=== PATIENT | female | born 1960 | race Caucasian/White ===

== ENCOUNTER 2019-11-12 08:12 | Outpatient (REF) | payer OTHER, SELFPAY ==
[2019-11-12 09:03] LABS: MANUAL DIFF FLAG NO
[2019-11-12 09:07] LABS: Basophils Percent Auto 0.5 % (0-2); Eosinophils Absolute Auto 0.1 X10*3/uL (0.0-0.4); Eosinophils Percent Auto 1.4 % (0-4); Hematocrit 40.5 % (37-47); Hemoglobin 13.6 g/dl (12.0-16.0); Imm Gran Abs Auto 0.01 X10*3/uL (0.00-0.03); Imm Gran Pct Auto 0.2 % (0.0-0.4); Lymphocytes Absolute Auto 1.7 X10*3/uL (1.2-4.9); Lymphocytes Percent Auto 29.5 % (20-40); Mean Corpuscular HGB Conc 33.6 g/dl (31.0-35.0); Mean Corpuscular Hemoglobin 30.6 pg (27.0-33.0); Mean Platelet Volume 11.3 fL (9.4-12.3); Monocytes Absolute Auto 0.4 X10*3/uL (0.1-1.2); Monocytes Percent Auto 7.2 % (2-11); Neutrophils Absolute Auto 3.4 X10*3/uL (2.0-8.3); Neutrophils Percent Auto 61.2 % (45-73); Platelet Count 215 X10*3/uL (160-400); Red Blood Count 4.45 X10*6/uL (4.20-5.50); Red Cell Distribution Width 12.4 % (11.0-16.0); White Blood Count 5.6 X10*3/uL (4.8-10.8)
[2019-11-12 09:33] LABS: Alanine Aminotransferase 31 U/L (0-31); Albumin Level 4.5 g/dL (3.5-5.0); Alkaline Phosphatase 101 U/L (39-117); Aspartate Amino Transferase 29 U/L (5-31); Bilirubin Direct 0.2 mg/dL (0.0-0.5); Bilirubin Total 0.6 mg/dL (0.0-1.0)
[2019-11-12 09:35] LABS: Alanine Aminotransferase 31 U/L (0-31); Albumin Level 4.5 g/dL (3.5-5.0); Alkaline Phosphatase 101 U/L (39-117); Anion Gap 10 (12-20); Aspartate Amino Transferase 29 U/L (5-31); Bilirubin Total 0.5 mg/dL (0.0-1.0); Blood Urea Nitrogen 9 mg/dL (9-16); Calcium 9.7 mg/dL (8.4-10.2); Carbon Dioxide 29 mmol/L (22-29); Chloride 102 mmol/L (96-108); Cholesterol 224 mg/dL; Estimated Glomerular Filt Rate > 60; Glucose Fasting 100 mg/dL (60-99); HDL Cholesterol 61 mg/dL; LDL Cholesterol Calculated 141 mg/dl; Potassium 4.3 mmol/l (3.3-5.1); Sodium 137 mmol/L (135-145); Total Protein 7.2 g/dL (6.5-8.0); Triglycerides 111 mg/dL
[2019-11-12 09:48] LABS: Thyroid Stimulating Hormone 1.28 mIU/mL (0.32-4.0)
[2019-11-12 09:53] LABS: HBS Num1 188.31 mIU/mL (0-7.99); ~Hepatitis B Surface Antibody REACTIVE (Nonreactive); ~Hepatitis C Antibody Nonreactive (Nonreactive)
[2019-11-12 10:15] LABS: HBc Num1 0.07 S/CO (0.00-0.79); HBsAGNum1 0.59 S/CO (0.00-0.99); Hepatitis B Core Antibody Nonreactive (Nonreactive); Hepatitis B Surface Antigen Negative (Negative)
[2019-11-14 18:25] LABS: Alpha 1 Anti-trypsin 143 mg/dL (83-199)
== END 2019-11-12 08:13 | disposition home or self-care (01) ==
LOC: HO.LAB 08:12
PROVIDERS: PCP Internal Medicine; Visit Provider Internal Medicine
DX: R74.8 Abnormal levels of other serum enzymes (principal); R53.83 Other fatigue
CPT/HCPCS: 36415; 80053; 80061; 80076; 82103; 84443; 85025; 86704; 86706; 86803; 87340

== ENCOUNTER 2020-05-01 13:33 | Outpatient (REF) | payer OTHER, SELFPAY ==
[2020-05-01 14:50] LABS: Alanine Aminotransferase 19 U/L (0-31); Albumin Level 4.5 g/dL (3.5-5.0); Alkaline Phosphatase 108 U/L (39-117); Aspartate Amino Transferase 22 U/L (5-31); Bilirubin Direct < 0.2 mg/dL (0.0-0.5); Bilirubin Total 0.3 mg/dL (0.0-1.0); Total Protein 7.4 g/dL (6.5-8.0)
[2020-05-04 17:46] LABS: Ceruloplasmin 18 mg/dL (18-53)
== END 2020-05-01 13:34 | disposition home or self-care (01) ==
LOC: HO.LAB 13:33
PROVIDERS: Visit Provider Internal Medicine
DX: R74.8 Abnormal levels of other serum enzymes (principal)
CPT/HCPCS: 36415; 80076; 82390

== ENCOUNTER 2020-05-08 16:21 | Outpatient (REF) | payer OTHER, SELFPAY ==
--- NOTE | ~2020-05-08 | MM_ITS ---
EXAMINATION: MM SCREENING DIGITAL BREAST TOMOSYNTHESIS, BILATERAL CLINICAL INFORMATION: Screening. Asymptomatic. The lifetime risk of breast cancer based on the Tyrer-Cuzick Model is 9%. COMPARISON: Mammography: 12/19/2018, 04/26/2017, 02/20/2013 TECHNIQUE: Digital breast tomosynthesis is performed in both the craniocaudal and mediolateral oblique views along with computer-aided detection (CAD). Synthesized 2D images are generated from the tomosynthesis. FINDINGS: There are scattered areas of fibroglandular density (ACR BI-RADS breast composition Category b). There are no significant masses, abnormal calcifications, or other abnormalities. Parenchymal pattern is similar to prior studies. Mild bilateral nipple retraction is chronic. The axilla are unremarkable. MM/MM tomosynthesis screening BI IMPRESSION: No significant changes from prior exams. ASSESSMENT: BI-RADS 2: Benign RECOMMENDATION: Routine annual mammography screening. This patient's information was entered into a reminder system with a target due date for their next mammogram.
== END 2020-05-08 16:22 | disposition home or self-care (01) ==
LOC: HO.MAMMO 16:21
PROVIDERS: PCP Internal Medicine; Visit Provider Internal Medicine
DX: Z12.31 Encounter for screening mammogram for malignant neoplasm of breast (principal)
CPT/HCPCS: 77063; 77067

== ENCOUNTER 2020-09-18 13:42 | Outpatient (REF) | payer OTHER, SELFPAY ==
--- NOTE | ~2020-09-18 | XR_ITS ---
EXAMINATION: XR SACRUM AND COCCYX CLINICAL INFORMATION: Coccygeal pain. COMPARISON: None TECHNIQUE: AP and lateral views of the sacrum and coccyx. FINDINGS: No acute fracture or subluxation. Mild loss of intervertebral disc height with small endplate osteophytes at L4-L5 and L5-S1. No sacroiliac joint space narrowing or marginal osteophytes. No osseous erosion. No lytic or blastic osseous lesion. XR/XR sacrum coccyx min 2V IMPRESSION: Mild degenerative disc disease at L4-L5 and L5-S1.
== END 2020-09-18 13:43 | disposition home or self-care (01) ==
LOC: HO.XRAY 13:42
PROVIDERS: PCP Internal Medicine; Visit Provider Internal Medicine
DX: M53.3 Sacrococcygeal disorders, not elsewhere classified (principal)
CPT/HCPCS: 72220

== ENCOUNTER 2020-11-20 08:51 | Outpatient (REF) | payer OTHER, SELFPAY ==
[2020-11-20 09:15] LABS: MANUAL DIFF FLAG NO
[2020-11-20 09:45] LABS: Basophils Percent Auto 0.4 % (0-2); Eosinophils Absolute Auto 0.1 X10*3/uL (0.0-0.4); Hematocrit 40.8 % (37-47); Hemoglobin 13.7 g/dl (12.0-16.0); Imm Gran Abs Auto 0.01 X10*3/uL (0.00-0.03); Imm Gran Pct Auto 0.2 % (0.0-0.4); Lymphocytes Absolute Auto 1.5 X10*3/uL (1.2-4.9); Lymphocytes Percent Auto 30.1 % (20-40); Mean Corpuscular HGB Conc 33.6 g/dl (31.0-35.0); Mean Corpuscular Hemoglobin 30.2 pg (27.0-33.0); Mean Corpuscular Volume 90.1 fL (80-98); Mean Platelet Volume 11.5 fL (9.4-12.3); Monocytes Absolute Auto 0.4 X10*3/uL (0.1-1.2); Monocytes Percent Auto 8.7 % (2-11); Neutrophils Percent Auto 58.6 % (45-73); Platelet Count 229 X10*3/uL (160-400); Red Blood Count 4.53 X10*6/uL (4.20-5.50); Red Cell Distribution Width 12.4 % (11.0-16.0); White Blood Count 5.1 X10*3/uL (4.8-10.8)
[2020-11-20 10:18] LABS: Alanine Aminotransferase 20 U/L (0-31); Albumin Level 4.5 g/dL (3.5-5.0); Alkaline Phosphatase 95 U/L (39-117); Anion Gap 11 (12-20); Aspartate Amino Transferase 26 U/L (5-31); Bilirubin Total 0.3 mg/dL (0.0-1.0); Blood Urea Nitrogen 6 mg/dL (9-16); Carbon Dioxide 30 mmol/L (22-29); Chloride 100 mmol/L (96-108); Cholesterol 219 mg/dL; Estimated Glomerular Filt Rate > 60; Glucose Random 98 mg/dL (60-115); HDL Cholesterol 64 mg/dL; LDL Cholesterol Calculated 136 mg/dl; Potassium 4.2 mmol/L (3.3-5.1); Sodium 137 mmol/L (135-145); Total Protein 7.2 g/dL (6.5-8.0); Triglycerides 99 mg/dL
[2020-11-20 10:40] LABS: TSH reflex Free T4 1.02 uIU/mL (0.32-4.0)
== END 2020-11-20 08:52 | disposition home or self-care (01) ==
LOC: HO.LAB 08:51
PROVIDERS: PCP Internal Medicine; Visit Provider Internal Medicine
DX: Z00.00 Encounter for general adult medical examination without abnormal findings (principal); R53.83 Other fatigue; E78.00 Pure hypercholesterolemia, unspecified
CPT/HCPCS: 36415; 80053; 80061; 84443; 85025

== ENCOUNTER 2021-05-14 08:51 | Outpatient (REF) | payer OTHER, SELFPAY ==
--- NOTE | ~2021-05-14 | MM_ITS ---
EXAMINATION: MM SCREENING DIGITAL BREAST TOMOSYNTHESIS, BILATERAL CLINICAL INFORMATION: Screening. Asymptomatic. The lifetime risk of breast cancer based on the Tyrer-Cuzick Model is 9%. COMPARISON: Mammography: 05/08/2020, 12/19/2018, 04/26/2017 TECHNIQUE: Digital breast tomosynthesis is performed in both the craniocaudal and mediolateral oblique views along with computer-aided detection (CAD). Synthesized 2D images are generated from the tomosynthesis. FINDINGS: There are scattered areas of fibroglandular density (ACR BI-RADS breast composition Category b). There are no significant masses, abnormal calcifications, or other abnormalities. The axilla are unremarkable. There is mild chronic bilateral nipple retraction similar to prior studies. No significant changes. MM/MM tomosynthesis screening BI IMPRESSION: No mammographic evidence of malignancy. ASSESSMENT: BI-RADS 2: Benign RECOMMENDATION: Routine annual mammography screening. This patient's information was entered into a reminder system with a target due date for their next mammogram.
== END 2021-05-14 08:52 | disposition home or self-care (01) ==
LOC: HO.MAMMO 08:51
PROVIDERS: PCP Family Medicine; Visit Provider Family Medicine
DX: Z12.31 Encounter for screening mammogram for malignant neoplasm of breast (principal)
CPT/HCPCS: 77063; 77067

== ENCOUNTER 2022-03-08 15:11 | Outpatient (REF) | payer OTHER, SELFPAY ==
--- NOTE | ~2022-03-08 | MR_ITS ---
MR THORACIC SPINE WITHOUT CONTRAST CLINICAL INFORMATION: Hyperreflexia. Rule out AVM. COMPARISON: None available. TECHNIQUE: The patient could not tolerate this study and a 3 plane localizer and single sagittal T1-weighted series of the thoracic spine are obtained. MR/MR thoracic spine wo con FINDINGS/IMPRESSION: The patient could not tolerate this examination. A single limited sagittal T1-weighted series of the thoracic spine is obtained. At T6-T7, a probable disc osteophyte complex flattens the ventral cord. Nondiagnostic assessment for a spinal AVM on this one obtained series. Multiple cysts within the liver. Repeat study with sedation advised as clinically indicated.
== END 2022-03-08 15:12 | disposition home or self-care (01) ==
LOC: HO.MRI 15:11
PROVIDERS: PCP Family Medicine; Visit Provider Psychiatry & Neurology Neurology
DX: R20.2 Paresthesia of skin (principal); R29.2 Abnormal reflex; Q27.30 Arteriovenous malformation, site unspecified
CPT/HCPCS: 72146

== ENCOUNTER 2022-08-12 09:06 | Outpatient (REF) | payer OTHER, SELFPAY ==
--- NOTE | ~2022-08-12 | MM_ITS ---
EXAMINATION: MM SCREENING DIGITAL BREAST TOMOSYNTHESIS, BILATERAL CLINICAL INFORMATION: Screening. Asymptomatic. The lifetime risk of breast cancer based on the Tyrer-Cuzick Model is 9.3%. COMPARISON: Mammography: This study is compared with prior exams dating back to 2018. TECHNIQUE: Digital breast tomosynthesis is performed in both the craniocaudal and mediolateral oblique views along with computer-aided detection (CAD). Synthesized 2D images are generated from the tomosynthesis. FINDINGS: There are scattered areas of fibroglandular density (ACR BI-RADS breast composition Category b). There are no significant masses, abnormal calcifications, or other abnormalities. MM/MM tomosynthesis screening BI IMPRESSION: No mammographic evidence of malignancy. ASSESSMENT: BI-RADS BI-RADS 1 - Negative RECOMMENDATION: Routine annual mammography screening. 1 year F/U This examination should not preclude the clinical evaluation of a suspicious palpable abnormality. This patient's information was entered into a reminder system with a target due date for their next mammogram.
== END 2022-08-12 09:07 | disposition home or self-care (01) ==
LOC: HO.MAMMO 09:06
PROVIDERS: PCP Family Medicine; Visit Provider Family Medicine
DX: Z12.31 Encounter for screening mammogram for malignant neoplasm of breast (principal)
CPT/HCPCS: 77063; 77067

== ENCOUNTER → 2022-08-12 09:15 | Outpatient (BNV) | payer OTHER, SELFPAY | PROVIDERS: PCP Family Medicine; Visit Provider Radiology Diagnostic Radiology | DX: Z12.31 Encounter for screening mammogram for malignant neoplasm of breast (principal) | CPT/HCPCS: 77063; 77067 ==

== ENCOUNTER 2023-06-14 07:24 | Day surgery (SDC) | payer OTHER, SELFPAY ==
[2023-06-13 06:42] VITALS: BMI 22.7
--- NOTE | 2023-06-13 09:06 | P.CONAN_ITS ---
Documented by User: Cindy Rojo NP 06/13/23 09:06 HPI - Anesthesia Eval Consult details Narrative: 62yo F for Upper Endoscopy and Colonoscopy PMFSH Active Problems Active Problems: All Active Problems Hepatic cyst (Acute) Elevated LFTs (Acute) Chronic idiopathic constipation (Acute) GERD (gastroesophageal reflux disease) (Acute) Past Medical History Medical History Hx of lipoma Low iron Elevated liver enzymes Depression Essential tremor Vasovagal syncope Constipation Migraines Family History Family History (Updated 03/12/20 @ 13:59 by Tessy Henson Martín) Father Pancreatic cancer Mother Colon cancer, Onset Age: 82 Brother Scoliosis Sister IBS (irritable bowel syndrome) Surgical History Surgical History History of removal of skin mole History of left oophorectomy History of esophagogastroduodenoscopy (EGD) Hx of colonoscopy Social History Social History Patient Tobacco Use Status: Never used Tobacco Use of substances other than those prescribed or required for medical reasons: Yes Substance Use Frequency: Occasionally Are you DNR?: No Advance Directives: No Advance Directives Information Provided: Yes Patient : No Meds Allergies Allergy/AdvReac Type Severity Reaction Status Date / Time azithromycin [AZITHROMYCIN] Allergy Severe ORAL Verified 06/14/23 07:55 BLISTERS ibuprofen Allergy Unknown Unknown Verified 03/12/20 14:00 Band-Aid Allergy Unknown Unknown Uncoded 03/12/20 14:00 Home Medications ?Medication ?Instructions ?Recorded ?Confirmed ?Last Taken ?Type escitalopram oxalate 10 mg tablet 10 mg PO DAILY 06/13/23 06/13/23 Unknown History multivitamin 1 tab PO DAILY 06/13/23 06/13/23 Unknown History omeprazole 20 mg capsule,delayed 20 mg PO BID 06/13/23 06/14/23 06/14/23 06:00 History release propranolol 10 mg tablet 10 mg PO DAILY 06/13/23 06/13/23 Unknown History Exam Height,Weight and Vital Signs: Height 5 ft 4 in Weight 59.874 kg Assessment and Plan Assessment Anesthesia Assessment: Chart Reviewed Documented by User: Tammy Hogan MD 06/14/23 08:28 [facility] Past Medical History Medical History Hx of lipoma Low iron Elevated liver enzymes Depression Essential tremor Vasovagal syncope Constipation Migraines Family History Family History (Updated 03/12/20 @ 13:59 by Tessy Henson [facility]) Father Pancreatic cancer Mother Colon cancer, Onset Age: 82 Brother Scoliosis Sister IBS (irritable bowel syndrome) Family history of problems with anesthesia: No Surgical History Surgical History History of removal of skin mole History of left oophorectomy History of esophagogastroduodenoscopy (EGD) Hx of colonoscopy History of Problems with Anesthesia: No Social History Social History Patient Tobacco Use Status: Never used Tobacco Use of substances other than those prescribed or required for medical reasons: Yes Substance Use Frequency: Occasionally Are you DNR?: No Advance Directives: No Advance Directives Information Provided: Yes Patient : No Meds Allergies Allergy/AdvReac Type Severity Reaction Status Date / Time azithromycin [AZITHROMYCIN] Allergy Severe ORAL Verified 06/14/23 07:55 BLISTERS ibuprofen Allergy Unknown Unknown Verified 03/12/20 14:00 Band-Aid Allergy Unknown Unknown Uncoded 03/12/20 14:00 Home Medications ?Medication ?Instructions ?Recorded ?Confirmed ?Last Taken ?Type escitalopram oxalate 10 mg tablet 10 mg PO DAILY 06/13/23 06/13/23 Unknown History multivitamin 1 tab PO DAILY 06/13/23 06/13/23 Unknown History omeprazole 20 mg capsule,delayed 20 mg PO BID 06/13/23 06/14/23 06/14/23 06:00 History release propranolol 10 mg tablet 10 mg PO DAILY 06/13/23 06/13/23 Unknown History Exam Airway Mallampati Class: II (caps top right slightly lateral) TM Dist: >3cm Neck ROM: Full Heart: rrr Lungs: cta Assessment and Plan Assessment Anesthesia Assessment: Anesthesia Plan Discussed Final Anesthetic Review Family History of Problems with Anesthesia: No History of Problems with Anesthesia: No NPO: Yes ASA Class: II Final Preanesthetic Review: No Changes in Pt Med Stat, Meds/Allgs Chart Reviewed and Consent Obtained/Reviewed Patient Risk: Low Procedure Risk: Intermediate Anesthetic Plan Anesthetic Plan: MAC: Disposition: Standard PACU
[2023-06-14 07:49] VITALS: BMI 22.8
--- NOTE | 2023-06-14 08:11 | PC.NURSE ---
Fleets enema administerd. Returns are liquid, marie and clear
[2023-06-14] MEDS: Sodium Phosphate,Mono-Dibasic 133 ML ENEMA PR (08:13)
[2023-06-14] MEDS: Lactated Ringers 1,000 ML 100 ML IVCONT (08:24)
[2023-06-14 08:25] VITALS: BP 130/75; PULSE 76; RESP 16; TEMP 36.3; O2SAT 98
--- NOTE | 2023-06-14 09:31 | P.BOP_ITS ---
Brief Operative Note Date of Service: 06/14/23 Pre-op diagnosis: GERD, Screening Post-op diagnosis: other (Hiatal hernia, Diverticulosis) Procedure: EGD with biopsies, Colonoscopy to the cecum Surgeon: Caden Smith MD Anesthesia: MAC Was an Cut Off Saw Tender Metal used for this Procedure?: No Estimated blood loss (mL): 2.0 Pathology: other (A. EG Junction at 35cm) Condition: stable Disposition: PACU
[2023-06-14 09:32] VITALS: BP 95/51; PULSE 99; RESP 16; TEMP 36.3; O2SAT 95
[2023-06-14 09:46] VITALS: BP 105/65; PULSE 76; RESP 16; O2SAT 95
[2023-06-14 09:59] VITALS: BP 103/67; PULSE 67; RESP 16; TEMP 36.2; O2SAT 97
--- NOTE | 2023-06-15 03:28 | OP_ITS ---
DATE OF SERVICE: 06/14/2023 SURGEON: Caden Smith MD INDICATIONS: The patient presents for evaluation of gastroesophageal reflux, colorectal cancer screening and personal history of tubular adenoma of the colon. Full consent has been obtained from her for this, including risks of bleeding and perforation. PREOPERATIVE DIAGNOSIS: POSTOPERATIVE DIAGNOSIS: PROCEDURE PERFORMED: Esophagogastroduodenoscopy with biopsies, and colonoscopy to the cecum. ESTIMATED BLOOD LOSS: COMPLICATIONS: ANESTHESIA: Monitored anesthesia care. ASSISTANTS: SPECIMENS: PREOPERATIVE DIAGNOSES: Colorectal cancer screening, personal history of tubular adenoma of the colon, gastroesophageal reflux. POSTOPERATIVE DIAGNOSES: Colorectal cancer screening, personal history of tubular adenoma of the colon, gastroesophageal reflux, hiatal hernia, diverticulosis, internal hemorrhoids, limited colonoscopy prep. DESCRIPTION OF PROCEDURE: The patient was placed in the left lateral decubitus position. The Olympus video gastroscope was passed in the posterior oropharynx and upper esophagus under direct vision. The scope was passed slowly to the distal esophagus. The gastroesophageal junction appeared at 35 cm. There was some slight irregularity consistent with reflux but no evidence of any esophagitis nor any definitive Echevarria's mucosa. The scope entered the stomach. There was a small hiatal hernia. The scope was advanced to the pylorus, and the duodenum was cannulated to the descending portion. The duodenum including the bulb appeared normal without mass or ulceration. Biopsies were not obtained as they had been obtained on the previous procedure and were negative for celiac disease. The scope was withdrawn back to the stomach. The gastric antrum and body appeared normal with good peristalsis. The scope was retroflexed visualizing the proximal stomach carefully, which appeared normal, without any sign of mass or ulceration. Scope was straightened and withdrawn back in the esophagus. Biopsies were obtained at the EG junction at 35 cm. Proximal to this, the esophageal mucosa appeared normal. The scope withdrawn from the patient. She was turned around for the colonoscopy. The digital rectal exam revealed no abnormalities. The Olympus video pediatric colonoscope was entered into the rectum and advanced to the cecum. Once in the cecum, I did identify normal-appearing cecal pouch with appendiceal orifice and a normal-appearing ileocecal valve. The entire cecum and ileocecal valve were well visualized and appeared normal. The scope was then slowly withdrawn assessing all mucosal surfaces carefully. Preparation in the ascending and transverse colon was very good. However, preparation in the descending and sigmoid colon was quite limited with a fair amount of liquid stool, which was irrigated and suctioned away as best as possible but the view was still somewhat limited. I did not visualize any sign of polyps, colitis, nor angiodysplasia. There was a mild amount of sigmoid diverticulosis. In the rectum, scope was retroflexed visualizing internal hemorrhoids, but no other pathology. The rectal mucosa appeared normal. The scope was straightened and withdrawn from the patient. She tolerated the procedure well and was returned to the recovery area in stable condition. IMPRESSION: 1. Hiatal hernia, gastroesophageal reflux. 2. Diverticulosis. 3. Internal hemorrhoids. 4. Limited colon prep. PLAN: The results of the biopsies will be checked. She has been advised to continue her omeprazole either daily or as needed for her reflux symptoms. If there happens to be Echevarria's esophagus seen on the upper endoscopy biopsies, I would then recommend a repeat upper endoscopy in 3 years as long as there is no dysplasia. In regard to the limited colon prep, I have given her instructions to obtain a Cologuard test from her primary care provider. If negative, I would then recommend a repeat colonoscopy in 5 years for further screening. If the Cologuard test happens to be positive, I would then recommend a followup colonoscopy this year with a better clean out. Of note, she reports that she was only able to take a portion of the prep due to nausea. MD YARI Killian/COURTNEY / [phone] MTDBarbara
== END 2023-06-14 10:32 | disposition home or self-care (01) ==
PROVIDERS: PCP Family Medicine; Visit Provider Internal Medicine
PROC: (CPT 45378; principal; 2023-06-14 08:30)
DX: Z12.11 Encounter for screening for malignant neoplasm of colon (principal); K57.30 Diverticulosis of large intestine without perforation or abscess without bleeding; K64.8 Other hemorrhoids; Z86.010 Personal history of colon polyps; Z80.0 Family history of malignant neoplasm of digestive organs; K21.9 Gastro-esophageal reflux disease without esophagitis; K44.9 Diaphragmatic hernia without obstruction or gangrene
CPT/HCPCS: 45378; 43239; 88305; 88313; J2704

== ENCOUNTER → 2023-07-21 15:20 | Outpatient (BNV) | payer OTHER, SELFPAY | PROVIDERS: PCP Family Medicine; Referring Provider Family Medicine; Visit Provider Internal Medicine | DX: D50.9 Iron deficiency anemia, unspecified (principal) | CPT/HCPCS: 99204; 99213 ==

== ENCOUNTER 2023-08-04 08:58 | Outpatient (REF) | payer OTHER, SELFPAY ==
--- NOTE | ~2023-08-04 | MM_ITS ---
EXAMINATION: BONE DENSITOMETRY CLINICAL INDICATION: Long-term, current, use of drug therapy. COMPARISON: This is the patient's baseline examination. TECHNIQUE: Using a Heckyl DXA System (software version: 13.1) manufactured by [employer], dual-energy x-ray absorptiometry was performed of the lumbar spine and left hip. The images are of good technical quality. Summary results are attached. FINDINGS: LEFT FEMUR, NECK: BMD 0.820 g/cm2, Z-score -0.2, T-score -1.6, osteopenia. LEFT FEMUR, TOTAL: BMD 0.842 g/cm2, Z-score -0.3, T-score -1.3, osteopenia. AP SPINE L1-L3 (excluding L4): The data of L1-L4 has been changed to exclude the L4 vertebral body, because degenerative sclerosis at this level may cause overestimation of lumbar spine density. BMD 0.836 g/cm2, Z-score -1.4, T-score -2.8, osteoporosis. IDENTIFIED RISK FACTORS: Menopause, left oophorectomy, anticonvulsants. HISTORY OF FRACTURE: None listed. MEDICATIONS: Calcium supplements or multivitamin, vitamin D. MM/XR DEXA axial skeleton IMPRESSION: 1. DIAGNOSIS: Osteoporosis based on the lowest T-score value of -2.8 in the lumbar spine applying World Health Organization criteria. 2. 10-YEAR FRACTURE RISK PREDICTION, FRAX: According to the guidelines, FRAX calculation should only be performed on patients in the osteopenia bone density category. Therefore, FRAX was not performed on this patient. 3. Treatment Recommendations: NOF guidelines recommend consideration for treatment in postmenopausal women and men age 50 and older presenting with the following: -A hip or vertebral (clinical or morphometric) fracture. -T-score less than or equal to -2.5 at the femoral neck or spine after appropriate evaluation to exclude secondary causes. -Low bone mass at the hip or spine and a 10-year fracture probability by FRAX of greater than or equal to 3% for hip fracture or greater than or equal to 20% for major osteoporotic fracture based on the [place] adapted WHO algorithm. 4. Other Recommendations: All treatment decisions require clinical judgment and consideration of individual patient factors, including patient preferences, comorbidities, previous drug use, risk factors not captured in the FRAX model (e.g. frailty, falls, vitamin D deficiency, increased bone turnover, interval significant decline in bone density) and possible under or overestimation of fracture risk by FRAX. Additional medical evaluation for secondary cause of low bone mineral density may be appropriate. FUTURE SCAN RECOMMENDATION: People with diagnosed cases of osteoporosis or at high risk for fracture should have regular bone mineral density tests. For patients eligible for Medicare, routine testing is allowed once every 2 years. The testing frequency can be increased to one year for patients who have rapidly progressing disease, those who are receiving or discontinuing medical therapy to restore bone mass, or have additional risk factors.
== END 2023-08-04 08:59 | disposition home or self-care (01) ==
LOC: HO.MAMMO 08:58
PROVIDERS: PCP Family Medicine; Visit Provider Family Medicine
DX: Z13.820 Encounter for screening for osteoporosis (principal); Z78.0 Asymptomatic menopausal state; Z79.899 Other long term (current) drug therapy
CPT/HCPCS: 77080

== ENCOUNTER 2023-08-25 08:47 | Outpatient (REF) | payer OTHER, SELFPAY | END 2023-08-25 08:48 | disposition home or self-care (01) | LOC: HO.MAMMO 08:47 | PROVIDERS: PCP Family Medicine; Visit Provider Family Medicine | DX: Z13.89 Encounter for screening for other disorder (principal) ==

== ENCOUNTER 2023-10-20 08:18 | Outpatient (REF) | payer OTHER, SELFPAY ==
--- NOTE | ~2023-10-20 | MM_ITS ---
EXAMINATION: MM SCREENING DIGITAL BREAST TOMOSYNTHESIS, BILATERAL CLINICAL INFORMATION: Screening. Asymptomatic. COMPARISON: Mammography: Comparison is made with available priors TECHNIQUE: Digital breast mammography with tomosynthesis is performed in both the craniocaudal and mediolateral oblique views along with computer-aided detection (CAD). FINDINGS: There are scattered areas of fibroglandular density (ACR BI-RADS breast composition Category b). There are no significant masses, abnormal calcifications, or other abnormalities. MM/MM tomosynthesis screening BI IMPRESSION: No mammographic evidence of malignancy. ASSESSMENT: BI-RADS BI-RADS 1 - Negative RECOMMENDATION: Routine annual mammography screening. 1 year F/U This examination should not preclude the clinical evaluation of a suspicious palpable abnormality. This patient's information was entered into a reminder system with a target due date for their next mammogram. Electronically signed by: Inez Alonso DO 11/02/2023 08:07 PM EDT
== END 2023-10-20 08:19 | disposition home or self-care (01) ==
LOC: HO.MAMMO 08:18
PROVIDERS: PCP Family Medicine; Visit Provider Family Medicine
DX: Z12.31 Encounter for screening mammogram for malignant neoplasm of breast (principal)
CPT/HCPCS: 77063; 77067

== ENCOUNTER → 2023-10-20 08:30 | Outpatient (BNV) | payer OTHER, SELFPAY | PROVIDERS: PCP Family Medicine; Visit Provider Internal Medicine | DX: Z12.31 Encounter for screening mammogram for malignant neoplasm of breast (principal) | CPT/HCPCS: 77063; 77067 ==

== ENCOUNTER 2024-02-16 08:15 | Outpatient (REF) | payer OTHER, SELFPAY ==
--- NOTE | ~2024-02-16 | CT_ITS ---
CLINICAL HISTORY: abnormal MRI CT thoracic spine without contrast Comparison: No prior studies of any type Findings: History given as abnormal MRI. No prior studies are available for comparison. Please correlate clinically. No acute fracture or dislocation is demonstrated. Posterior alignment is normal throughout. No significant degenerative change noted. No radiopaque foreign bodies noted. Hepatic cysts incidentally noted. Impression: No acute processes This document has been electronically signed by: Roshan Hawthorne MD on 02/16/2024 19:59:10
--- OUTSIDE RECORDS SUMMARY | 2024-02-16 08:20 | XMS_ITS | Patient Health Record ---
Author Organization [facility] Address [address] [place] [address] Care Team Providers Care Plan Examiner Name Role Phone MIKE GUTIERREZ M.D. Primary Care Provider Caden Pardo [phone] ALLERGIES Allergen (clinical drug ingredient) Drug/Non Drug Allergy documented on EMR Reaction Allergy Type Onset Date Status Adhesive Unknown Allergy Active ibuprofen Ibuprofen Unknown Drug Allergy Active Azithromycin Unknown Drug Allergy Acti ve RESULTS Component Value Reference Range Notes Pathology Reviewed date:06/21/2023 12:13:29 AM Interpretation: Performing Lab:[facility], [address] [place] [id number] Notes/Report: REASON FOR REFERRAL No Information MEDICATIONS Medication SIG (Take, Route, Frequency, Duration) Notes Start Date End Date Status Propranolol HCl 10 MG 1 tablet Orally On ce a day for 30 day(s) Active Omeprazole 20 MG Oral for 90 A ctive Escitalopram Oxalate 10 MG Oral for 30 Active Multivitamin - 1 tablet Orally Once a day for 30 day(s) Active IMMUNIZATIONS Vaccine Route Administration Date Status Comme nts Influenza Unknown 11/07/2018 Administered Influenza Unknown 11/07/2019 Administered Influenza Unknown 10/26/2021 Administered SOCIAL HISTORY Tobacco Use: Social History Observation Description Date Details (start date - stop date) Former Smoker NA - NA Sex Assigned At : Social History Observation Description Sex Assigned At Unknown Tobacco Use/Smoking Question Answer Notes Patient is a former smoker When did you start smoking? 20 When did you stop smoking? 30 Years Ago Alcohol Screen Question Answer Notes Did you have a drink containing alcohol in the p ast year? No Points 0 Interpretation Negative PROBLEMS Problem Type ICD Code Onset Dates Problem Status W/U Status Risk SNOMED Code Notes Problem Liver cyst (K76.89) Active confirmed 85 [id number] Problem Elevated liver enzymes (R74.8) Active confirmed 130603362 Problem Constipation (K59.00) Active confirmed Constipation (55956850) Problem Gastroesophageal reflux disease, unspecified whether esophagitis present (K21.9) Active confirmed 899623324 Problem Colon cancer screening (Z12.11) Active confirmed 387499976 Problem History of adenomatous polyp of colon (Z86.010) Active confirmed 709750964 Problem Constipation, unspecified constipation type (K59.00) Active confirmed 53568988 Problem Personal history of colonic polyps (Z86.010) Active confirmed History of poly p of colon (situation) (014610184) Problem Diverticulosis of large intestine without perforation or abscess without bleeding (K57.30) Active confirmed Diverticul ar disease of colon (360559909) Problem Gastroesophageal reflux disease (K21.9) Active confirmed Gastroesophagea l reflux disease (998452800) Encounters Encounter Location Date Provider Diagnosis [facility] Outpatient [address] [place] [phone] 06/14/2023 Caden Smith Encounter for screen ing colonoscopy Z12.11 ; Personal history of colonic polyps Z86.010 ; Diverticulosis of large intestine without perforation or abscess without bleeding K57.30 ; Other hemorrhoids K64.8 ; Gastroesophageal reflux disease K21.9 and Hiatal hernia K44.9 [facility] [address] [place] [phone] 06/13/2023 Caden Smith [facility] [address] [place] [phone] 06/18/2023 Caden Smith [facility] [address] [place] [phone] 06/20/2023 Caden Smith ASSESSMENTS Encounter Date Diagnosis Assessment Notes Treatment Notes Treatment Clinical Notes 06/14/2023 Encounter for screen ing colonoscopy (ICD-10 - Z12.11) 06/14/2023 Personal history of colonic polyps (ICD-10 - Z86.010) 06/14/2023 Diverticulosis of la rge intestine without perforation or abscess without bleeding (ICD-10 - K57.30) 06/14/2023 Other hemorrhoids (ICD-10 - K64.8) 06/14/2023 Gastroesophageal ref lux disease (ICD-10 - K21.9) 06/14/2023 Hiatal hernia (ICD-1 0 - K44.9) PLAN OF TREATMENT Pending Test Test Name Order Date LIVER PROFILE 10/03/2019 LIVER PROFILE 05/01/2020 HEPATITIS B, C PROFILE 10/03/2019 [id number] (A1A) 10/03/2019 CERULOPLASMIN 05/01/2020 Future Test Test Name Order Date UPPER GI ENDOSCOPY 10/19/2022 COLONOSCOPY 10/19/2022 Insurance Providers Payer Name Payer Address Payer Phone Subscriber Number Group Number Insured Name Patient Relationship to Insured Coverage Start Date Coverage End Date [employer] [address] [address] [place] [address] [id number] OMAIRA YI Self - patient is the insured MEDICAL (GENERAL) HISTORY Medical History History ICD Code Migraine headaches Constipation Denies [place],DM,CVA,Lung disease,renal dise ase Vasovagal Syncope Essential Tremor Mild depression Liver cysts seen on imaging studies dating back as far as 2015 and most recently as of August,. The studies have included ultrasound and CAT scans. The largest cyst measured up to 3 cm in diameter. Also described was a < 1cm hemangioma. Elevated liver enzymes in 2019 with negative autoimmune studies, positive hepatitis B surface antibody, normal iron studies, and a normal alpha-fetoprotein level. She has had low ceruloplasmin levels in the past, but has also had low serum and urinary copper levels--- she has never had a liver biopsy nor has she been treated for anything like Luis's disease. She had normal liver profiles in November of 2019 and in April of 2020. Her ceruloplasmin was at the lower limit of normal at a level of 18 in April of 2020. GERD-EGD with Dr. Massey in 2016-normal duodenal biopsies normal gastric biopies, small HH Colonoscopy with Dr. Massey in 2018 with removal of a tubular adenoma; she also describes a colonoscopy about 5 years before [address] with Dr[address] Thibodeaux that was negative as far as she can recall Reported low iron level but without anemia-she is going to be seeing a administration manager as of the October 2022 office visit. She has been unable to tolerate oral iron due to constipation. Surgical History Surgery Date(Month/Year) Left ovary removed 2017 Lipoma - Shoulder 2011 Mole Removal 1989 Lipoma removed
--- OUTSIDE RECORDS SUMMARY | 2024-02-16 08:20 | XMS_ITS ---
Author Organization [facility] Address [address] [place] [id number] Care Team Providers Care Bath Mixer Name Role Phone MIKE GUTIERREZ M.D. Primary Care Provider Lillie vailable Caden Smith Unavailable [phone] REASON FOR VISIT Cologuard test Encounters Encounter Location Date Provider Diagnosis [facility] [address] [place] [address] 06/18/2023 Caden Smith PLAN OF TREATMENT No Information
--- OUTSIDE RECORDS SUMMARY | 2024-02-16 08:20 | XMS_ITS ---
Author Organization [facility] Address [address] [place] [address] Care Team Providers Care Neuroscience Director Na Name Role Phone MIKE GUTIERREZ M.D. Primary Care Provider Lillie vailable Caden Smith Unavailable [phone] REASON FOR VISIT screening,hx polyps, gerd PROBLEMS Problem Type ICD Code Onset Dates Problem Status W/U Status Risk SNOMED Code Notes Problem Personal history of colonic polyps (Z86.010) Active confirmed History of poly p of colon (situation) (137989946) Problem Diverticulosis of large intestine without perforation or abscess without bleeding (K57.30) Active confirmed Diverticul ar disease of colon (665061349) Problem Gastroesophageal reflux disease (K21.9) Active confirmed Gastroesophagea l reflux disease (931270922) Encounters Encounter Location Date Provider Diagnosis [facility] Outpatient [address] [place] [phone] 06/14/2023 Caden Smith Encounter for screen ing colonoscopy Z12.11 ; Personal history of colonic polyps Z86.010 ; Diverticulosis of large intestine without perforation or abscess without bleeding K57.30 ; Other hemorrhoids K64.8 ; Gastroesophageal reflux disease K21.9 and Hiatal hernia K44.9 ASSESSMENTS Encounter Date Diagnosis Assessment Notes Treatment [...] (ICD-1 0 - K44.9) PLAN OF TREATMENT No Information
== END 2024-02-16 08:16 | disposition home or self-care (01) ==
LOC: HO.CT 08:15
PROVIDERS: PCP Family Medicine; Visit Provider Internal Medicine
DX: R94.02 Abnormal brain scan (principal)
CPT/HCPCS: 72128

== ENCOUNTER → 2024-02-16 08:35 | Outpatient (BNV) | payer OTHER, SELFPAY | PROVIDERS: PCP Family Medicine; Visit Provider Radiology Diagnostic Radiology | DX: R93.89 Abnormal findings on diagnostic imaging of other specified body structures (principal) | CPT/HCPCS: 72128 ==

== ENCOUNTER 2024-02-16 08:42 | Outpatient (REF) | payer OTHER, SELFPAY ==
--- OUTSIDE RECORDS SUMMARY | 2024-02-16 08:46 | XMS_ITS ---
Author Organization [facility] Address [address] [place] [phone] Care Team Providers Care Instrument Tester Name Role Phone MIKE GUTIERREZ M.D. Primary Care Provider Lillie vailable Caden Smith Unavailable [phone] REASON FOR VISIT RESULTS Encounters Encounter Location Date Provider Diagnosis [facility] [address] [place] [phone] 06/20/2023 Caden Smith PLAN OF TREATMENT No Information
[2024-02-19 20:53] LABS: Lyme Abs Screen <0.90 index
[2024-02-20 05:55] LABS: Arsenic, Blood <3 mcg/L (<23); Lead, Blood <1.0 mcg/dL (<3.5); Mercury, Blood <4 mcg/L (<=10)
== END 2024-02-16 08:43 | disposition home or self-care (01) ==
LOC: HO.LAB 08:42
PROVIDERS: Internal Medicine; PCP Family Medicine; Visit Provider Psychiatry & Neurology Neurology
DX: G62.9 Polyneuropathy, unspecified (principal)
CPT/HCPCS: 36415; 82175; 83655; 83825; 86617; 86618